=== PATIENT | female | born 1975 | race Caucasian/White ===

== ENCOUNTER 2018-01-29 06:08 | Day surgery (SDC) | payer BC ==
[~2018-01-29] VITALS: Ht 152.4 cm; Wt 68.5 kg
[2018-01-29] MEDS ORDERED: MIDAZOLAM HCL 5 MG/5 ML VIAL IVP ONE (07:30)
[2018-01-29] MEDS ORDERED: NS IRRIG SOLN 5000 ML IR ONE (07:30)
[2018-01-29] MEDS ORDERED: ONDANSETRON HCL 4 MG/2 ML VIAL IVP ONE (07:30)
[2018-01-29] MEDS ORDERED: fentaNYL CITRATE/PF 100 MCG/2 ML AMP IVP ONE (07:30)
[2018-01-29] MEDS ORDERED: PROPOFOL 200MG/ 20ML VIAL (DIPRIVAN) IV ONE (07:30)
[2018-01-29] MEDS ORDERED: SILVER NITRATE APPLICATOR 1 STICK STICK..EA. TP ONE (07:30)
[2018-01-29] MEDS ORDERED: SEVOFLURANE 15 MIN GAS INH ONE (07:30)
[2018-01-29] MEDS ORDERED: MIVACURIUM CHLORIDE 20 MG/10 ML VIAL (MIVACRON) INJ ONE (07:30)
[2018-01-29] MEDS ORDERED: KETOROLAC TROMETHAMINE 30 MG VIAL IVP ONE (07:30)
[2018-01-29] MEDS ORDERED: LR 1,000 ML IV SCH (08:14)
[2018-01-29] MEDS ORDERED: ONDANSETRON HCL 4 MG/2 ML VIAL IVP PRN ×2 (08:15→09:00)
[2018-01-29] MEDS ORDERED: MORPHINE 4 MG/ML INJ. SYRINGE IVP PRN ×3 (08:15)
[2018-01-29] MEDS ORDERED: OXYCODONE/ACETAMINOPHEN 5-325 TABLET PO PRN (09:00)
[2018-01-29] MEDS ORDERED: HYDROmorphone 2 MG TAB PO PRN (09:00)
[2018-01-29] MEDS ORDERED: PROMETHAZINE HCL 25 MG/ML AMP IM PRN ×2 (09:00)
[2018-01-29] MEDS ORDERED: ONDANSETRON HCL 4 MG/2 ML VIAL ONE (09:44)
[2018-01-29 10:52] VITALS: BP_SYST 111
[2018-01-29] MEDS ORDERED: KETOROLAC TROMETHAMINE 30 MG VIAL IVP SCH (12:00)
== END 2018-01-29 11:30 | disposition home or self-care (01) ==
LOC: SMU 06:08 → SDS 06:08
PROVIDERS: ATTEND Obstetrics & Gynecology
DX: N84.0 Polyp of corpus uteri (principal); G43.119 Migraine with aura, intractable, without status migrainosus; K21.9 Gastro-esophageal reflux disease without esophagitis; E78.00 Pure hypercholesterolemia, unspecified; E05.90 Thyrotoxicosis, unspecified without thyrotoxic crisis or storm; Z79.899 Other long term (current) drug therapy; E66.3 Overweight
CPT/HCPCS: 36415; 58563; 86886; 86900; 86901; 88305; J1885; J2250; J2405; J2704; J3010; J7120